=== PATIENT | female | born 1990 | race American Indian/Alaskan Native ===

== ENCOUNTER 2017-05-25 18:26 | Emergency (ER) | payer OTHER, MEDICAID ==
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
[2017-05-26] MEDS ORDERED: NORCO 5/325 PO ONE (00:48)
[2017-05-26] MEDS ORDERED: FLEXERIL PO ONE (00:48)
[2017-05-26 01:05] VITALS: BP 111/49
== END 2017-05-26 01:19 | disposition home or self-care (01) ==
LOC: ED 18:26
DX: M54.5 Low back pain (principal); M54.2 Cervicalgia; M25.552 Pain in left hip; M79.605 Pain in left leg; Z88.8 Allergy status to other drugs, medicaments and biological substances; V49.49XA Driver injured in collision with other motor vehicles in traffic accident, initial encounter; Y93.89 Activity, other specified; Y99.8 Other external cause status; Y92.89 Other specified places as the place of occurrence of the external cause
CPT/HCPCS: 72040; 72070; 72100; 81025; 99283

== ENCOUNTER 2017-11-28 04:47 | Emergency (ER) | payer MEDICAID, OTHER ==
[2017-11-28 04:52] VITALS: BP 116/73
[2017-11-28] MEDS ORDERED: DELTASONE PO ONE (05:31)
[2017-11-28] MEDS ORDERED: BENADRYL PO ONE (05:31)
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
== END 2017-11-28 06:37 | disposition home or self-care (01) ==
LOC: ED 04:47
DX: K13.0 Diseases of lips (principal); F17.200 Nicotine dependence, unspecified, uncomplicated
CPT/HCPCS: 99282; J7512; Q0163